=== PATIENT | male | born 1980 | race Caucasian/White ===

== ENCOUNTER 2024-06-04 15:49 | Inpatient (IN) ==
[2024-06-04 18:08] LABS: BASOPHILS # (AUTO) 0.1 X10^3/uL (0.0-0.1); BASOPHILS % (AUTO) 1.1 % (0.2-1.0); EOSINOPHILS # (AUTO) 0.3 x10^3/uL (0.0-0.2); EOSINOPHILS % (AUTO) 2.7 % (0.9-2.9); HEMATOCRIT 41.7 % (42.0-54.0); HEMOGLOBIN 13.9 g/dL (13.5-18.0); LYMPHOCYTES # (AUTO) 3.7 X10^3/uL (1.3-2.9); LYMPHOCYTES % (AUTO) 33.4 % (21.0-51.0); MEAN CORPUSCULAR HEMOGLOBIN 27.4 pg (27.0-34.0); MEAN CORPUSCULAR HGB CONC 33.3 g/dL (33.0-35.0); MEAN CORPUSCULAR VOLUME 82.4 fL (80.0-100.0); MEAN PLATELET VOLUME 8.7 fL (7.4-11.0); MONOCYTES # (AUTO) 0.9 x10^3/uL (0.3-0.8); MONOCYTES % (AUTO) 8.6 % (0.0-13.0); NEUTROPHILS # (AUTO) 5.9 x10^3/uL (2.2-4.8); NEUTROPHILS % (AUTO) 54.2 % (42.0-75.0); PLATELET COUNT 185 X10^3/uL (150.0-450.0); RED BLOOD COUNT 5.07 X10^6/uL (4.7-6.0); RED CELL DISTRIBUTION WIDTH 14.4 % (11.6-16.5); WHITE BLOOD COUNT 10.9 X10^3/uL (3.6-10.0)
[2024-06-04] MEDS: PROVENTIL NEB TX 0.083% 2.5MG/ 3ML NEB SCH (18:10)
[2024-06-04] MEDS: Atrovent NEB TX 0.02% NEB SCH (18:10)
[2024-06-04 18:13] LABS: ERYTHROCYTE SEDIMENTATION RATE 48 MM/HOUR (0-15)
[2024-06-04] MEDS: NS 1,000 ML IV 1,000 ML IV SCH (18:13)
[2024-06-04] MEDS: SOLU-Medrol 40 MG VIAL IVP SCH (18:13)
[2024-06-04 18:21] LABS: HEMOGLOBIN A1C 6.3 %
[2024-06-04 18:31] LABS: ALANINE AMINOTRANSFERASE 35 Units/L (12-78); ALBUMIN 3.6 g/dL (3.4-5.0); ALKALINE PHOSPHATASE 117 Units/L (46-116); ASPARTATE AMINO TRANSFERASE 21 Units/L (15-37); BLOOD UREA NITROGEN 17 mg/dL (7-18); CALCIUM 9.1 mg/dL (8.5-10.1); CARBON DIOXIDE 33.4 mmol/L (21-32); CHLORIDE 101 mmol/L (98-107); CREATININE 0.88 mg/dL (0.70-1.30); FREE T4 (FREE THYROXINE) 1.03 ng/dL (0.76-1.46); GLUCOSE 109 mg/dL (65-99); MAGNESIUM 1.7 mg/dL (2.0-2.9); POTASSIUM 3.9 mmol/L (3.5-5.1); SODIUM 138 mmol/L (136-145); TOTAL PROTEIN 7.8 g/dL (6.4-8.2); TSH (3RD GENERATION) 1.178 uIU/mL (0.358-3.74); eGFR NON BLACK RACES > 60 (>60)
[2024-06-04] MEDS: INVanz INJ 1 GRAM VIAL 1 G in NS 100 ML IV 100 ML IV SCH (21:03)
[2024-06-04] MEDS: SNACK - Diabetic Appropriate PO SCH (21:04)
[2024-06-04 22:34] LABS: ABG ALLEN TEST POS; ABG BASE EXCESS 5.8 mmol/L (-2.0-2.0); ABG HCO3 32.1 mmol/L (22-26)
--- NOTE | 2024-06-04 23:29 | CT ---
EXAMINATION:CTA, CHESTHISTORY:Hypoxia, SOB, COPD;COMPARISON:None.TE[facility]NIQUE[facility] of the [facility]ax following intravenous contrast. Images reviewed in the axial imaging plane with post processing thick slab MIP/3D volume images at a workstation.The above CT scan was done with automated exposure control and the mA and kV was adjusted to obtain quality images according to patient size.FINDINGS:The lungs are expanded. Small area of dense pulmonary consolidation inferior aspect of the lingula segment towards the left hemidiaphragm of the chest. Central airways are patent. No pleural fluid collections.Mild multichamber cardiac enlargement. Coronary artery calcifications. Enlarged main pulmonary outflow trunk measuring 3.4 cm diameter suspicious for pulmonary arterial hypertension. No evidence of thrombus within the main central pulmonary arteries. However, there is heterogeneous enhancement within secondary and tertiary branch vessels of the pulmonary arteries in both lower lungs potentially representing acute pulmonary emboli. Mild fusiform shaped ectasia ascending thoracic aorta 4 cm diameter. No evidence of thoracic aortic dissection. 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 No mediastinal or hilar adenopathy.Mild thoracic spondylosis.IMPRESSION:Enlarged main pulmonary outflow trunk suspicious for pulmonary arterial hypertension. Subtle heterogeneous enhancement of the secondary and tertiary branch vessels of the pulmonary arteries in both lower lung jay potentially representing acute pulmonary emboli. 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
--- NOTE | 2024-06-04 23:54 | RAD ---
EXAM:CHEST, PA/LAT ADULTHISTORY:hypoxia, SOB, COPD exacerbation;COMPARISON:None available.FINDINGS:The trachea is midline. The cardiac silhouette is unremarkable . The lungs are clear without focal infiltrate or effusion. The bony thorax is unremarkable.IMPRESSION:No acute cardiopulmonary disease.THIS IS AN ELECTRONICALLY VERIFIED FINAL REPORT06/04/2024 11:51 PM - Electronically signed by Saurabh Rouse MD
[2024-06-05] MEDS: DUONEB 0.5 MG/3 MG (3 mL) NEB SCH (00:05)
[2024-06-05] MEDS: NS 100 ML IV 100 ML ONE (00:19)
[2024-06-05] MEDS: ROCEPHIN VIAL 1 GRAM 1 G in NS 100 ML IV 100 ML IV SCH (00:19)
[2024-06-05] MEDS: DUONEB 0.5 MG/3 MG (3 mL) NEB ONE (00:20)
[2024-06-05] MEDS: OMNIPAQUE 350 mg/mL 100 mL BTL 100 ML ONE (00:20)
[2024-06-05 01:19] LABS: BILIRUBIN,URINE NEGATIVE (NEGATIVE); BLOOD/HEMOGLOBIN,URINE NEGATIVE (NEGATIVE); GLUCOSE, URINE NEGATIVE (NEGATIVE); KETONES,URINE NEGATIVE (NEGATIVE); LEUKOCYTE ESTERASE ,URINE NEGATIVE (NEGATIVE); NITRITES,URINE NEGATIVE (NEGATIVE); PROTEIN,URINE 2+ (NEGATIVE); UROBILINOGEN,URINE NORMAL (NORMAL)
[2024-06-05 01:28] LABS: APPEARANCE,URINE CLEAR (CLEAR); COLOR,URINE YELLOW (YELLOW)
[2024-06-05 01:35] LABS: BACTERIA,URINE TRACE /HPF (NEGATIVE); RBC,URINE 0-2 /HPF (0-3); SQUAMOUS EPITHELIAL CELL,UR RARE /HPF (NEGATIVE)
[2024-06-05] MEDS ORDERED: HEPARIN SODIUM INJ 5000 UNITS ONE (06:09)
[2024-06-05] MEDS: HEPARIN SODIUM INJ 5000 UNITS IVP ONE ×3 (06:17→19:42)
[2024-06-05] MEDS: HEPARIN SODIUM IN D5W 25,000 UNITS/500 ML BAG IV PRN (06:17)
[2024-06-05 06:41] LABS: ALANINE AMINOTRANSFERASE 31 Units/L (12-78); ALBUMIN 3.5 g/dL (3.4-5.0); ALKALINE PHOSPHATASE 115 Units/L (46-116); ASPARTATE AMINO TRANSFERASE 15 Units/L (15-37); BLOOD UREA NITROGEN 12 mg/dL (7-18); CALCIUM 8.6 mg/dL (8.5-10.1); CARBON DIOXIDE 31.3 mmol/L (21-32); CHLORIDE 101 mmol/L (98-107); COR NA(FOR HYPERGLY) 142 mmol/L (136-145); CREATININE 0.88 mg/dL (0.70-1.30); GLUCOSE 204 mg/dL (65-99); MAGNESIUM 1.9 mg/dL (2.0-2.9); POTASSIUM 4.5 mmol/L (3.5-5.1); SODIUM 140 mmol/L (136-145); TOTAL PROTEIN 8.1 g/dL (6.4-8.2); eGFR NON BLACK RACES > 60 (>60)
[2024-06-05 06:42] LABS: BASOPHILS % (AUTO) 0.2 % (0.2-1.0); HEMATOCRIT 43.4 % (42.0-54.0); HEMOGLOBIN 14.4 g/dL (13.5-18.0); LYMPHOCYTES # (AUTO) 1.3 X10^3/uL (1.3-2.9); MEAN CORPUSCULAR HEMOGLOBIN 27.5 pg (27.0-34.0); MEAN CORPUSCULAR HGB CONC 33.1 g/dL (33.0-35.0); MEAN CORPUSCULAR VOLUME 83.1 fL (80.0-100.0); MEAN PLATELET VOLUME 9.1 fL (7.4-11.0); MONOCYTES # (AUTO) 0.1 x10^3/uL (0.3-0.8); NEUTROPHILS # (AUTO) 8.7 x10^3/uL (2.2-4.8); NEUTROPHILS % (AUTO) 85.8 % (42.0-75.0); PLATELET COUNT 186 X10^3/uL (150.0-450.0); RED BLOOD COUNT 5.22 X10^6/uL (4.7-6.0); RED CELL DISTRIBUTION WIDTH 14.1 % (11.6-16.5); WHITE BLOOD COUNT 10.2 X10^3/uL (3.6-10.0)
[2024-06-05] MEDS: ZESTRIL TAB 10 MG PO SCH (10:00)
--- NOTE | 2024-06-05 10:51 | EKG ---
Test Reason : hypoxia , Blood Pressure : */* mmHG Vent. Rate : 56 BPM Atrial Rate : 56 BPM P-R Int : 136 ms QRS Dur : 94 ms QT Int : 456 ms P-R-T Axes : 54 34 44 degrees QTc Int : 440 ms Sinus bradycardia Otherwise normal ECG No previous ECGs available Confirmed by Alfonso Min MD ([id number]) on 06/06/2024 6:48:15 AM Referred By: Confirmed By: Alfonso Min MD
--- NOTE | 2024-06-05 13:16 | DR.H&P ---
H&P History & Physical for Day of: H&P Date: 06/04/24 Chief Complaint Chief Complaint: trev jiang History of Present Illness History of Present Illness: PT IS 43 WM, DIRECT ADMIT FROM DR CISNEROS OFFICE WITH CO TREV JIANG SICK FOR ONE MONTH. PT HAD ROOM AIR HYPOXIA ON EVALUATION IN OUR [place] OFFICE. PT DENIES ANY PMH OF RESP ILLNESSES LIKE COPD OR ASTHMA. Past Medical History Past Medical History: COPD and Diabetes (Pre-diabetes) Past Surgical History Surgical History: No History Family History Family Medical History: Diabetes Mellitus and Cancer Social History Does patient currently use any type of tobacco product: No (quit 6 months ago) Type of Tobacco Use: None Alcohol Use: None Drug Use: None Medications Home Medications: Home Medications Medication Instructions Recorded Confirmed Type buprenorphine HCl 8 mg sublingual 8 mg sublingual QDAY 06/04/24 06/04/24 History tablet Allergies Allergies Allergy/AdvReac Type Severity Reaction Status Date / Time cephalexin [From Keflex] Allergy Verified 06/04/24 17:12 Labs 06/05/24 05:55 06/05/24 05:55 Labs: Laboratory WBC 10.2 X10^3/uL (3.6-10.0) H 06/05/24 05:55 RBC 5.22 X10^6/uL (4.7-6.0) 06/05/24 05:55 Hgb 14.4 g/dL (13.5-18.0) 06/05/24 05:55 Hct 43.4 % (42.0-54.0) 06/05/24 05:55 MCV 83.1 fL (80.0-100.0) 06/05/24 05:55 MCH 27.5 pg (27.0-34.0) 06/05/24 05:55 MCHC 33.1 g/dL (33.0-35.0) 06/05/24 05:55 RDW 14.1 % (11.6-16.5) 06/05/24 05:55 Plt Count 186 X10^3/uL (150.0-450.0) 06/05/24 05:55 MPV 9.1 fL (7.4-11.0) 06/05/24 05:55 Neut % (Auto) 85.8 % (42.0-75.0) H 06/05/24 05:55 Lymph % (Auto) 13.0 % (21.0-51.0) L 06/05/24 05:55 [place] % (Auto) 1.0 % (0.0-13.0) 06/05/24 05:55 Eos % (Auto) 0.0 % (0.9-2.9) L 06/05/24 05:55 Baso % (Auto) 0.2 % (0.2-1.0) 06/05/24 05:55 Neut # (Auto) 8.7 x10^3/uL (2.2-4.8) H 06/05/24 05:55 Lymph # (Auto) 1.3 X10^3/uL (1.3-2.9) 06/05/24 05:55 [place] # (Auto) 0.1 x10^3/uL (0.3-0.8) L 06/05/24 05:55 Eos # (Auto) 0.0 x10^3/uL (0.0-0.2) 06/05/24 05:55 Baso # (Auto) 0.0 X10^3/uL (0.0-0.1) 06/05/24 05:55 Absolute Nucleated RBC 0.1 /100WBC 06/05/24 05:55 ESR 48 MM/HOUR (0-15) H 06/04/24 17:54 PT 14.0 SECONDS (11.8-14.3) 06/04/24 23:58 INR Target Range - 06/04/24 23:58 INR 1.10 (0.8-1.3) 06/04/24 23:58 APTT 46.4 SECONDS (22.9-36.5) H 06/05/24 12:03 PTT Comment - 06/05/24 12:03 D-Dimer < 0.27 ug/ml (0.0-0.57) 06/04/24 23:58 D-Dimer Cancelled 06/04/24 23:58 Sample Site Lr 06/04/24 22:28 ABG pH 7.390 (7.35-7.45) 06/04/24 22:28 ABG pCO2 53.0 mmHg (35.0-45.0) H* 06/04/24 22:28 ABG pO2 56.0 mmHg (80.0-100.0) L 06/04/24 22:28 ABG HCO3 32.1 mmol/L (22-26) H* 06/04/24 22:28 ABG O2 Saturation 88.0 % (90-100) L 06/04/24 22:28 ABG Base Excess 5.8 mmol/L (-2.0-2.0) H 06/04/24 22:28 Jeremy Test Pos 06/04/24 22:28 A-a Gradient 27.0 mmHg 06/04/24 22:28 FiO2 21.0 06/04/24 22:28 Blood Gas Comments Yolanda well ae 06/04/24 22:28 Sodium 140 mmol/L (136-145) 06/05/24 05:55 Corrected Sodium 142 mmol/L (136-145) 06/05/24 05:55 Potassium 4.5 mmol/L (3.5-5.1) 06/05/24 05:55 Chloride 101 mmol/L (98-107) 06/05/24 05:55 Carbon Dioxide 31.3 mmol/L (21-32) 06/05/24 05:55 BUN 12 mg/dL (7-18) 06/05/24 05:55 Creatinine 0.88 mg/dL (0.70-1.30) 06/05/24 05:55 Est GFR (MDRD) Af Amer > 60 (>60) 06/05/24 05:55 Est GFR (MDRD) Non-Af > 60 (>60) 06/05/24 05:55 Glucose 204 mg/dL (65-99) H 06/05/24 05:55 POC Glucose (mg/dL) 164 mg/dL (65-99) H 06/05/24 12:21 Hemoglobin A1c 6.3 % 06/04/24 17:54 Calcium 8.6 mg/dL (8.5-10.1) 06/05/24 05:55 Corrected Calcium TNP 06/05/24 05:55 Magnesium 1.9 mg/dL (2.0-2.9) L 06/05/24 05:55 Total Bilirubin 0.30 mg/dL (0.2-1.0) 06/05/24 05:55 AST 15 Units/L (15-37) 06/05/24 05:55 ALT 31 Units/L (12-78) 06/05/24 05:55 Alkaline Phosphatase 115 Units/L (46-116) 06/05/24 05:55 Troponin I High Sens 8.5 ng/L (4.0-60.0) 06/05/24 11:00 C-Reactive Protein 14.60 mg/L (0-3.0) H 06/04/24 17:54 Total Protein 8.1 g/dL (6.4-8.2) 06/05/24 05:55 Albumin 3.5 g/dL (3.4-5.0) 06/05/24 05:55 Globulin 4.6 g/dL (2.5-4.5) H 06/05/24 05:55 Albumin/Globulin Ratio 0.8 Ratio (1.1-2.1) L 06/05/24 05:55 Free T4 1.03 ng/dL (0.76-1.46) 06/04/24 17:54 TSH 3rd Generation 1.178 uIU/mL (0.358-3.74) 06/04/24 17:54 Specimen Type Clean catch urine 06/05/24 00:50 Urine Color Yellow (YELLOW) 06/05/24 00:50 Urine Appearance Clear (CLEAR) 06/05/24 00:50 Urine pH 7.0 (5.0 - 8.0) 06/05/24 00:50 Ur Specific [place] 1.010 (1.000-1.030) 06/05/24 00:50 Urine Protein 2+ (NEGATIVE) 06/05/24 00:50 Urine Glucose (UA) Negative (NEGATIVE) 06/05/24 00:50 Urine Ketones Negative (NEGATIVE) 06/05/24 00:50 Urine Blood Negative (NEGATIVE) 06/05/24 00:50 Urine Nitrite Negative (NEGATIVE) 06/05/24 00:50 Urine Bilirubin Negative (NEGATIVE) 06/05/24 00:50 Urine Urobilinogen Normal (NORMAL) 06/05/24 00:50 Ur Leukocyte Esterase Negative (NEGATIVE) 06/05/24 00:50 Urine RBC 0-2 /HPF (0-3) 06/05/24 00:50 Urine WBC 0-2 /HPF (0-5) 06/05/24 00:50 Ur Squamous Epith Cells Rare /HPF (NEGATIVE) 06/05/24 00:50 Amorphous Sediment 1+ /HPF (NEGATIVE) 06/05/24 00:50 Urine Bacteria Trace /HPF (NEGATIVE) 06/05/24 00:50 Urine Mucus Few /HPF (NEGATIVE) 06/05/24 00:50 Ur Culture Indicated? No/not indicated 06/05/24 00:50 Review of Systems Constitutional: Sweats, Weakness, Malaise and Other (weight gain (100 pounds in 6mos)) Eyes: No Symptoms Reported ENT: Nose Congestion and Other (Sinus Pressure) Respiratory: Shortness of Breath and SOB with Excertion Cardiovascular: No Symptoms Reported Gastrointestinal: Nausea, Vomiting and Abdominal Pain Genitourinary: Frequency and Other (urgency) Musculoskeletal: No Symptoms Reported Skin: No Symptoms Reported Neurological: Other (severe headaches/migraines) Physical Exam Vital Signs: Vital Signs Temperature 97.8 F Pulse Rate 64 Blood Pressure 168/86 O2 Sat by Pulse Oximetry 96 Oriented: Normal Eyes: Normal Ear: Normal Throat: Dry Respiratory: Diminished Throughout Cardiovascular: Tachycardia and Edema Auscultation: Bowel Sounds: Normal Palpation: Normal Tenderness: Normal Skin: Normal Musculoskeletal: Normal Psychiatric: Anxiety Mood Description: Anxious Speech Pattern: Clear and Appropriate Assessment/Plan (1) Hypoxia: Status: Acute Plan: ADMIT, ICU ABG ON ADMISSION CTA RO PE IV ATBX, IV SOLU MEDROL SSI COVERAGE, BP CONTROL RESP PANEL, DUO NEBS, SUPPLEMENTAL O2 CE AND EKG (2) SOB (shortness of breath): Status: Acute
--- NOTE | 2024-06-05 13:19 | PCM.PROG ---
Progress Note Progress Note for Day of Date of Exam: 06/05/24 Subjective Subjective: PT IS 43 WM, ADMITTED WITH TREV REAGAN FOR ONE MONTH. PT HAD CTA ON ADMISSION REVEALING PE. PT WAS HYPOXIC. PT HAS BEEN HYPERTENSIVE SINCE ADMISSION. PT HAS BEEN ON HEPARIN DRIP WITH SUPPLEMENTAL. PT REQUIRED BIPAP THERAPY LAST PM DUE TO APNEA AND HYPOXIA. PT HAS ECHO AND US ORDERED FOR THIS AM . HYPER COAGULATION PANEL ADDED TO LABS. CONTINUE WITH HEPARIN, IV SOLU MEDROL AND IV ATBX. Past Medical Family Social History Allergies: Allergies cephalexin [From Keflex] Allergy (Verified 06/04/24 17:12) Vital Signs and I&O's Vital Signs: Vital Signs Temperature 97.8 F Pulse Rate 64 Blood Pressure 168/86 O2 Sat by Pulse Oximetry 96 Intake and Output: Intake & Output 06/03/24 06/04/24 06/05/24 06/06/24 11:59 11:59 11:59 11:59 Intake Total 153 / 153 Balance 153 / 153 Physical Exam Oriented: Normal Eyes: Normal Ear: Normal Nose: Normal Throat: Dry Respiratory: Diminished Cardiovascular: Tachycardia and Edema : Frequency Auscultation: Bowel Sounds: Normal Tenderness: Normal Skin: Normal Musculoskeletal: Normal Psychiatric: Anxiety Mood Description: Anxious Affect: Normal Speech Pattern: Clear and Appropriate Laboratory and Diagnostics 06/05/24 05:55 06/05/24 05:55 Labs: Laboratory WBC 10.2 X10^3/uL (3.6-10.0) H 06/05/24 05:55 RBC 5.22 X10^6/uL (4.7-6.0) 06/05/24 05:55 Hgb 14.4 g/dL (13.5-18.0) 06/05/24 05:55 Hct 43.4 % (42.0-54.0) 06/05/24 05:55 MCV 83.1 fL (80.0-100.0) 06/05/24 05:55 MCH 27.5 pg (27.0-34.0) 06/05/24 05:55 MCHC 33.1 g/dL (33.0-35.0) 06/05/24 05:55 RDW 14.1 % (11.6-16.5) 06/05/24 05:55 Plt Count 186 X10^3/uL (150.0-450.0) 06/05/24 05:55 MPV 9.1 fL (7.4-11.0) 06/05/24 05:55 Neut % (Auto) 85.8 % (42.0-75.0) H 06/05/24 05:55 Lymph % (Auto) 13.0 % (21.0-51.0) L 06/05/24 05:55 [place] % (Auto) 1.0 % (0.0-13.0) 06/05/24 05:55 Eos % (Auto) 0.0 % (0.9-2.9) L 06/05/24 05:55 Baso % (Auto) 0.2 % (0.2-1.0) 06/05/24 05:55 Neut # (Auto) 8.7 x10^3/uL (2.2-4.8) H 06/05/24 05:55 Lymph # (Auto) 1.3 X10^3/uL (1.3-2.9) 06/05/24 05:55 [place] # (Auto) 0.1 x10^3/uL (0.3-0.8) L 06/05/24 05:55 Eos # (Auto) 0.0 x10^3/uL (0.0-0.2) 06/05/24 05:55 Baso # (Auto) 0.0 X10^3/uL (0.0-0.1) 06/05/24 05:55 Absolute Nucleated RBC 0.1 /100WBC 06/05/24 05:55 ESR 48 MM/HOUR (0-15) H 06/04/24 17:54 PT 14.0 SECONDS (11.8-14.3) 06/04/24 23:58 INR Target Range - 06/04/24 23:58 INR 1.10 (0.8-1.3) 06/04/24 23:58 APTT 46.4 SECONDS (22.9-36.5) H 06/05/24 12:03 PTT Comment - 06/05/24 12:03 D-Dimer < 0.27 ug/ml (0.0-0.57) 06/04/24 23:58 D-Dimer Cancelled 06/04/24 23:58 Sample Site Lr 06/04/24 22:28 ABG pH 7.390 (7.35-7.45) 06/04/24 22:28 ABG pCO2 53.0 mmHg (35.0-45.0) H* 06/04/24 22:28 ABG pO2 56.0 mmHg (80.0-100.0) L 06/04/24 22:28 ABG HCO3 32.1 mmol/L (22-26) H* 06/04/24 22:28 ABG O2 Saturation 88.0 % (90-100) L 06/04/24 22: ABG Base Excess 5.8 mmol/L (-2.0-2.0) H 06/04/24 22: Jeremy Test Pos 06/04/24 22: A-a Gradient 27.0 mmHg 06/04/24 22:28 FiO2 21.0 06/04/24 22: Blood Gas Comments Yolanda well ae 06/04/24 22:28 Sodium 140 mmol/L (136-145) 06/05/24 05:55 Corrected Sodium 142 mmol/L (136-145) 06/05/24 05:55 Potassium 4.5 mmol/L (3.5-5.1) 06/05/24 05:55 Chloride 101 mmol/L (98-107) 06/05/24 05:55 Carbon Dioxide 31.3 mmol/L (21-32) 06/05/24 05:55 BUN 12 mg/dL (7-18) 06/05/24 05:55 Creatinine 0.88 mg/dL (0.70-1.30) 06/05/24 05:55 Est GFR (MDRD) Af Amer > 60 (>60) 06/05/24 05:55 Est GFR (MDRD) Non-Af > 60 (>60) 06/05/24 05:55 Glucose 204 mg/dL (65-99) H 06/05/24 05:55 POC Glucose (mg/dL) 164 mg/dL (65-99) H 06/05/24 12:21 Hemoglobin A1c 6.3 % 06/04/24 17:54 Calcium 8.6 mg/dL (8.5-10.1) 06/05/24 05:55 Corrected Calcium TNP 06/05/24 05:55 Magnesium 1.9 mg/dL (2.0-2.9) L 06/05/24 05:55 Total Bilirubin 0.30 mg/dL (0.2-1.0) 06/05/24 05:55 AST 15 Units/L (15-37) 06/05/24 05:55 ALT 31 Units/L (12-78) 06/05/24 05:55 Alkaline Phosphatase 115 Units/L (46-116) 06/05/24 05:55 Troponin I High Sens 8.5 ng/L (4.0-60.0) 06/05/24 11:00 C-Reactive Protein 14.60 mg/L (0-3.0) H 06/04/24 17:54 Total Protein 8.1 g/dL (6.4-8.2) 06/05/24 05:55 Albumin 3.5 g/dL (3.4-5.0) 06/05/24 05:55 Globulin 4.6 g/dL (2.5-4.5) H 06/05/24 05:55 Albumin/Globulin Ratio 0.8 Ratio (1.1-2.1) L 06/05/24 05:55 Free T4 1.03 ng/dL (0.76-1.46) 06/04/24 17:54 TSH 3rd Generation 1.178 uIU/mL (0.358-3.74) 06/04/24 17:54 Specimen Type Clean catch urine 06/05/24 00:50 Urine Color Yellow (YELLOW) 06/05/24 00:50 Urine Appearance Clear (CLEAR) 06/05/24 00:50 Urine pH 7.0 (5.0 - 8.0) 06/05/24 00:50 Ur Specific [place] 1.010 (1.000-1.030) 06/05/24 00:50 Urine Protein 2+ (NEGATIVE) 06/05/24 00:50 Urine Glucose (UA) Negative (NEGATIVE) 06/05/24 00:50 Urine Ketones Negative (NEGATIVE) 06/05/24 00:50 Urine Blood Negative (NEGATIVE) 06/05/24 00:50 Urine Nitrite Negative (NEGATIVE) 06/05/24 00:50 Urine Bilirubin Negative (NEGATIVE) 06/05/24 00:50 Urine Urobilinogen Normal (NORMAL) 06/05/24 00:50 Ur Leukocyte Esterase Negative (NEGATIVE) 06/05/24 00:50 Urine RBC 0-2 /HPF (0-3) 06/05/24 00:50 Urine WBC 0-2 /HPF (0-5) 06/05/24 00:50 Ur Squamous Epith Cells Rare /HPF (NEGATIVE) 06/05/24 00:50 Amorphous Sediment 1+ /HPF (NEGATIVE) 06/05/24 00:50 Urine Bacteria Trace /HPF (NEGATIVE) 06/05/24 00:50 Urine Mucus Few /HPF (NEGATIVE) 06/05/24 00:50 Ur Culture Indicated? No/not indicated 06/05/24 00:50 Plan (1) Pulmonary embolism: Status: Acute Plan: HEPARIN, HYPER COAG PANEL SUPPLEMENTAL O2 BP CONTROL, IV ATBX AND RESP THERAPY (2) Hypoxia: Status: Acute Plan: ICU ABG ON ADMISSION CTA RO PE IV ATBX, IV SOLU MEDROL SSI COVERAGE, BP CONTROL RESP PANEL, DUO NEBS, SUPPLEMENTAL O2 CE AND EKG (3) SOB (shortness of breath): Status: Acute (4) Pneumonia: Status: Acute (5) Hypertension: Status: Acute (6) Morbid obesity: Status: Acute
--- NOTE | 2024-06-05 13:40 | VAS ---
EXAM: [facility] Bilateral lower extremity DVT ultrasound examination with Doppler imaging. HISTORY: Bilateral PE, R/O DVT; BILAT PE'S . Evaluate for evidence for DVT. Bilateral lower extremity pain and swelling. COMPARISON: None TECHNIQUE: Ultrasound of the deep venous vasculature of the bilateral lower extremities was performed. Color and spectral doppler imaging was utilized for the purposes of this examination as well. FINDINGS: The deep veins of both lower extremities are normal in size and configuration. No intraluminal filli ng defects are seen on grayscale or color flow imaging. The veins compress normally. Doppler waveforms are normal at rest and with augmentation. IMPRESSION: Negative bilateral lower extremity DVT ultrasound exam(s). THIS IS AN ELECTRONICALLY VERIFIED FINAL REPORT 06/05/2024 1:36 PM - Electronically signed by Daniel David MD
[2024-06-05] MEDS: SUBOXONE FILM SL SCH (15:36)
--- NOTE | 2024-06-05 16:23 | EKG ---
Test Reason : hypoxia , Blood Pressure : */* mmHG Vent. Rate : 64 BPM Atrial Rate : 64 BPM P-R Int : 132 ms QRS Dur : 84 ms QT Int : 420 ms P-R-T Axes : 59 34 38 degrees QTc Int : 433 ms Normal sinus rhythm Normal ECG When compared with ECG of 05-JUN-2024 10:34, (Unconfirmed) No significant change was found Confirmed by Alfonso Min MD ([id number]) on 06/06/2024 6:46:50 AM Referred By: Confirmed By: Alfonso Min MD
[2024-06-05] MEDS: SOLU-Medrol 40 MG VIAL IVP SCH (20:46)
[2024-06-05] MEDS: NovoLIN R (or HumuLIN R) SUBCUT PRN (20:47)
--- NOTE | 2024-06-05 23:38 | EKG ---
Test Reason : hypoxia , Blood Pressure : */* mmHG Vent. Rate : 62 BPM Atrial Rate : 62 BPM P-R Int : 120 ms QRS Dur : 82 ms QT Int : 432 ms P-R-T Axes : 30 44 52 degrees QTc Int : 438 ms Normal sinus rhythm Normal ECG When compared with ECG of 05-JUN-2024 16:06, (Unconfirmed) No significant change was found Confirmed by Alfonso Min MD ([id number]) on 06/06/2024 6:45:59 AM Referred By: Confirmed By: Alfonso Min MD
[2024-06-06 03:09] LABS: BASOPHILS # (AUTO) 0.1 X10^3/uL (0.0-0.1); BASOPHILS % (AUTO) 0.4 % (0.2-1.0); EOSINOPHILS % (AUTO) 0.2 % (0.9-2.9); HEMATOCRIT 42.9 % (42.0-54.0); LYMPHOCYTES # (AUTO) 1.4 X10^3/uL (1.3-2.9); LYMPHOCYTES % (AUTO) 5.8 % (21.0-51.0); MEAN CORPUSCULAR HEMOGLOBIN 27.1 pg (27.0-34.0); MEAN CORPUSCULAR HGB CONC 32.7 g/dL (33.0-35.0); MEAN CORPUSCULAR VOLUME 82.8 fL (80.0-100.0); MONOCYTES # (AUTO) 0.8 x10^3/uL (0.3-0.8); MONOCYTES % (AUTO) 3.4 % (0.0-13.0); NEUTROPHILS # (AUTO) 21.7 x10^3/uL (2.2-4.8); NEUTROPHILS % (AUTO) 90.2 % (42.0-75.0); PLATELET COUNT 219 X10^3/uL (150.0-450.0); RED BLOOD COUNT 5.19 X10^6/uL (4.7-6.0); RED CELL DISTRIBUTION WIDTH 14.5 % (11.6-16.5)
[2024-06-06 03:26] LABS: ALANINE AMINOTRANSFERASE 28 Units/L (12-78); ALBUMIN 3.3 g/dL (3.4-5.0); ALKALINE PHOSPHATASE 106 Units/L (46-116); ASPARTATE AMINO TRANSFERASE 20 Units/L (15-37); BLOOD UREA NITROGEN 14 mg/dL (7-18); CARBON DIOXIDE 29.4 mmol/L (21-32); CHLORIDE 101 mmol/L (98-107); COR CA(FOR HYPOALB) 9.6 mg/dL (8.5-10.1); COR NA(FOR HYPERGLY) 141 mmol/L (136-145); CREATININE 0.74 mg/dL (0.70-1.30); GLUCOSE 180 mg/dL (65-99); POTASSIUM 5.2 mmol/L (3.5-5.1); SODIUM 139 mmol/L (136-145); TOTAL PROTEIN 7.7 g/dL (6.4-8.2); eGFR NON BLACK RACES > 60 (>60)
[2024-06-06 03:45] LABS: GIANT PLATELET RARE; PLATELET MORPHOLOGY COMMENT NORMAL (NORMAL)
[2024-06-06 03:46] LABS: TEAR DROP CELLS SLIGHT
[2024-06-06 13:09] LABS: BASOPHILS # (AUTO) 0.1 X10^3/uL (0.0-0.1); BASOPHILS % (AUTO) 0.4 % (0.2-1.0); EOSINOPHILS % (AUTO) 0.1 % (0.9-2.9); HEMATOCRIT 43.2 % (42.0-54.0); HEMOGLOBIN 14.2 g/dL (13.5-18.0); LYMPHOCYTES % (AUTO) 8.3 % (21.0-51.0); MEAN CORPUSCULAR HEMOGLOBIN 27.3 pg (27.0-34.0); MEAN CORPUSCULAR HGB CONC 32.9 g/dL (33.0-35.0); MEAN CORPUSCULAR VOLUME 82.9 fL (80.0-100.0); MEAN PLATELET VOLUME 9.2 fL (7.4-11.0); MONOCYTES % (AUTO) 4.1 % (0.0-13.0); NEUTROPHILS # (AUTO) 20.6 x10^3/uL (2.2-4.8); NEUTROPHILS % (AUTO) 87.1 % (42.0-75.0); PLATELET COUNT 207 X10^3/uL (150.0-450.0); RED BLOOD COUNT 5.21 X10^6/uL (4.7-6.0); RED CELL DISTRIBUTION WIDTH 14.3 % (11.6-16.5); WHITE BLOOD COUNT 23.7 X10^3/uL (3.6-10.0)
[2024-06-06 13:51] LABS: GIANT PLATELET FEW; PLATELET MORPHOLOGY COMMENT NORMAL (NORMAL)
--- NOTE | 2024-06-06 16:57 | RAD ---
EXAMINATION:CHEST, 1 VIEWHISTORY:pulmonary emboli; .COMPARISON STUDY:Chest x-ray 06/04/2024TECHNIQUE:Single portable AP view chestFINDINGS:Lungs are expanded. Moderate cardiac silhouette enlargement. Normal pulmonary vascular pattern. Imaging artifact partially obscures the right pulmonary apex. Bones are unchanged.IMPRESSION:Cardiac silhouette enlargement. Normal pulmonary vascular pattern.THIS IS AN ELECTRONICALLY VERIFIED FINAL REPORT06/06/2024 4:53 PM - Electronically signed by Rhea Echeverria MD
--- NOTE | 2024-06-06 19:21 | NOTE.SOAP ---
Soap Note Note for Day of Date of Exam: 06/06/24 Subjective Data Subjective Data: JOHNSON overnight. Breathing somewhat better. Still anxious about health. Reports months of having sudden urge to urinate but not always making it to bathroom in time. Objective Data Objective Data: Obese male in NAD. Wearing NC. RRR. Lungs clear but diminished. Bowel sounds present. Mood/affect appropriate. Assessment Assessment: 1. multiple pulmonary emboli 2. pulmonary HTN (unknown primary or secondary) 3. acute hypoxic respiratory failure due to above 4. urge incontinence (BPH?) Plan Plan: Continue heparin drip and other meds. PSA tomorrow.
[2024-06-07 06:42] LABS: ALANINE AMINOTRANSFERASE 32 Units/L (12-78); ALBUMIN 3.6 g/dL (3.4-5.0); ALKALINE PHOSPHATASE 122 Units/L (46-116); ASPARTATE AMINO TRANSFERASE 15 Units/L (15-37); BASOPHILS # (AUTO) 0.1 X10^3/uL (0.0-0.1); BASOPHILS % (AUTO) 0.4 % (0.2-1.0); BLOOD UREA NITROGEN 14 mg/dL (7-18); CALCIUM 8.9 mg/dL (8.5-10.1); CARBON DIOXIDE 34.4 mmol/L (21-32); CHLORIDE 101 mmol/L (98-107); COR NA(FOR HYPERGLY) 141 mmol/L (136-145); EOSINOPHILS % (AUTO) 0.1 % (0.9-2.9); GLUCOSE 136 mg/dL (65-99); HEMATOCRIT 46.3 % (42.0-54.0); LYMPHOCYTES # (AUTO) 3.7 X10^3/uL (1.3-2.9); LYMPHOCYTES % (AUTO) 25.2 % (21.0-51.0); MEAN CORPUSCULAR HEMOGLOBIN 27.2 pg (27.0-34.0); MEAN CORPUSCULAR HGB CONC 32.4 g/dL (33.0-35.0); MEAN CORPUSCULAR VOLUME 83.9 fL (80.0-100.0); MEAN PLATELET VOLUME 9.8 fL (7.4-11.0); MONOCYTES # (AUTO) 1.1 x10^3/uL (0.3-0.8); MONOCYTES % (AUTO) 7.5 % (0.0-13.0); NEUTROPHILS # (AUTO) 9.9 x10^3/uL (2.2-4.8); NEUTROPHILS % (AUTO) 66.8 % (42.0-75.0); PLATELET COUNT 196 X10^3/uL (150.0-450.0); RED BLOOD COUNT 5.52 X10^6/uL (4.7-6.0); RED CELL DISTRIBUTION WIDTH 14.6 % (11.6-16.5); SODIUM 140 mmol/L (136-145); WHITE BLOOD COUNT 14.8 X10^3/uL (3.6-10.0); eGFR NON BLACK RACES > 60 (>60)
[2024-06-07] MEDS: MILK OF MAGNESIA PO PRN (09:22)
[2024-06-07] MEDS: MILK OF MAGNESIA ONE (10:12)
[2024-06-07] MEDS: ELIQUIS PO SCH (13:49)
--- NOTE | 2024-06-07 14:43 | NOTE.SOAP ---
Soap Note Note for Day of Date of Exam: 06/07/24 Subjective Data Subjective Data: Patient reports he is feeling overall improved. Breathing seems a little easier but still requiring nasal cannula. agrees. No events overnight per nursing or patient. Objective Data Objective Data: Obese male in no acute distress. Heart regular rate and rhythm. Lungs diminished but good aeration. Mood and affect are appropriate. No swelling of his extremities. Assessment Assessment: 1. multiple pulmonary emboli 2. pulmonary HTN (unknown primary or secondary) 3. acute hypoxic respiratory failure due to above 4. urge incontinence (BPH?) Plan Plan: Transition from heparin to Eliquis. Continue O2 supplementation. Needs weight loss. PSA was normal, consider Myrbetriq on discharge.
[2024-06-07] MEDS: EMLA CREAM ONE (18:45)
[2024-06-07] MEDS: PROTONIX INJ 40 MG VIAL IVP SCH (21:07)
[2024-06-08 07:17] LABS: BASOPHILS # (AUTO) 0.1 X10^3/uL (0.0-0.1); BASOPHILS % (AUTO) 0.6 % (0.2-1.0); EOSINOPHILS # (AUTO) 0.2 x10^3/uL (0.0-0.2); EOSINOPHILS % (AUTO) 1.5 % (0.9-2.9); HEMATOCRIT 41.7 % (42.0-54.0); HEMOGLOBIN 13.7 g/dL (13.5-18.0); LYMPHOCYTES # (AUTO) 4.4 X10^3/uL (1.3-2.9); LYMPHOCYTES % (AUTO) 36.1 % (21.0-51.0); MEAN CORPUSCULAR HEMOGLOBIN 27.4 pg (27.0-34.0); MEAN CORPUSCULAR HGB CONC 32.7 g/dL (33.0-35.0); MEAN CORPUSCULAR VOLUME 83.7 fL (80.0-100.0); MEAN PLATELET VOLUME 9.2 fL (7.4-11.0); MONOCYTES # (AUTO) 1.1 x10^3/uL (0.3-0.8); NEUTROPHILS # (AUTO) 6.5 x10^3/uL (2.2-4.8); NEUTROPHILS % (AUTO) 52.8 % (42.0-75.0); PLATELET COUNT 183 X10^3/uL (150.0-450.0); RED BLOOD COUNT 4.98 X10^6/uL (4.7-6.0); RED CELL DISTRIBUTION WIDTH 15.1 % (11.6-16.5)
[2024-06-08 07:36] LABS: ALANINE AMINOTRANSFERASE 47 Units/L (12-78); ALBUMIN 3.1 g/dL (3.4-5.0); ALKALINE PHOSPHATASE 107 Units/L (46-116); ASPARTATE AMINO TRANSFERASE 21 Units/L (15-37); BLOOD UREA NITROGEN 15 mg/dL (7-18); CALCIUM 8.5 mg/dL (8.5-10.1); CARBON DIOXIDE 34.3 mmol/L (21-32); CHLORIDE 102 mmol/L (98-107); COR CA(FOR HYPOALB) 9.2 mg/dL (8.5-10.1); CREATININE 0.86 mg/dL (0.70-1.30); GLUCOSE 105 mg/dL (65-99); POTASSIUM 4.4 mmol/L (3.5-5.1); SODIUM 139 mmol/L (136-145); TOTAL PROTEIN 6.8 g/dL (6.4-8.2); eGFR NON BLACK RACES > 60 (>60)
[2024-06-08 07:49] LABS: GIANT PLATELET FEW; PLATELET MORPHOLOGY COMMENT ABNORMAL (NORMAL); WHITE BLOOD COUNT 12.3 X10^3/uL (3.6-10.0)
[2024-06-08 08:31] VITALS: RESP 20; TEMP 98.2
[2024-06-08 09:01] LABS: ABG ALLEN TEST POS; ABG HCO3 37.6 mmol/L (22-26)
[2024-06-08 13:54] VITALS: BP 119/58; PULSE 75; O2SAT 95
== END 2024-06-08 13:35 | disposition home or self-care (01) | DRG 175 ==
LOC: MED/SURG → OBSVTOIN 17:08 → ICU 23:51 → MED/SURG 06-06 16:56
PROVIDERS: ADMIT Internal Medicine; ATTEND Internal Medicine
DX: I27.20 Pulmonary hypertension, unspecified; R60.0 Localized edema; R70.0 Elevated erythrocyte sedimentation rate; R53.1 Weakness; J96.01 Acute respiratory failure with hypoxia; Z68.42 Body mass index [BMI] 45.0-49.9, adult; J44.1 Chronic obstructive pulmonary disease with (acute) exacerbation; R00.1 Bradycardia, unspecified; R79.1 Abnormal coagulation profile; R79.82 Elevated C-reactive protein (CRP); I26.94 Multiple subsegmental thrombotic pulmonary emboli without acute cor pulmonale; E83.42 Hypomagnesemia